=== PATIENT | male | born 1960 | race Caucasian/White ===

== ENCOUNTER → 2020-07-08 | Outpatient (CLI) | payer OTHER ==
--- NOTE | 2020-07-08 16:27 | Diagnostic Imaging Report ---
INDICATION: Left-sided knee pain. COMPARISON: None. FINDINGS: Three views of the left knee joint demonstrate no acute fracture or dislocation. No focal osseous lesions are seen. No significant joint effusion is seen. The surrounding soft tissue structures are unremarkable. There are no radiopaque foreign bodies. IMPRESSION: 1. No acute fractures or dislocations of the left knee joint. Dictated by: Dictated on workstation # [id number]
== END ==
LOC: RAD 15:40
PROVIDERS: ATTEND Nurse Practitioner Family
DX: M12.46 Intermittent hydrarthrosis, knee (principal); I10 Essential (primary) hypertension; K21.9 Gastro-esophageal reflux disease without esophagitis; I25.2 Old myocardial infarction; E78.49 Other hyperlipidemia; Z79.01 Long term (current) use of anticoagulants
CPT/HCPCS: 73562